=== PATIENT | female | born 1950 | race Caucasian/White ===

== ENCOUNTER 2021-10-11 07:36 | Observation (INO) ==
[~2021-10-11 07:36] MED LIST: Buffered Lidocaine 1% SYRIN 1 ml INTRADERM ONE; DiMENhydriNATE IV 50 mg/ml 1 ml VIAL IV PUSH ONE; HYDROcodone/ACETAMIN 5/325 mg TAB PO PRN; Lactated Ringers 1000 ml BAG 1,000 ML IV SCH; Metoclopramide 5 MG/ML VIAL (10 mg) IV PRN; Naloxone 0.4 mg VIAL 0.4 mg/ml 1 ml VIAL IV PRN; Ondansetron 4 mg VIAL 2 MG/ML 2 ml VIAL IV PRN; fentaNYL 100 mcg/2 ml 50 MCG/ML VIAL IV PRN
[2021-10-11] MEDS ORDERED: ceFAZolin 2 GM PREMIX 2 GM/50 ML BAG ONE (08:09)
[2021-10-11] MEDS ORDERED: Ondansetron ODT 4 mg TAB 4 MG TAB ONE (08:09)
[2021-10-11] MEDS ORDERED: Dexamethasone IV 4 MG/ML VIAL 1 ml VIAL ONE (09:30)
[2021-10-11] MEDS ORDERED: Rocuronium 50 mg VIAL 10 mg/ml 5 ml VIAL (50 mg) ONE ×2 (09:30→12:38)
[2021-10-11] MEDS ORDERED: Midazolam 2 mg/2 ml VIAL 1 mg/ml 2 ml VIAL (2 mg) ONE (09:30)
[2021-10-11] MEDS ORDERED: Lidocaine 2% PF 5 ML VIAL ONE (09:30)
[2021-10-11] MEDS ORDERED: Ondansetron 4 mg VIAL 2 MG/ML 2 ml VIAL ONE ×2 (09:30→19:03)
[2021-10-11] MEDS ORDERED: fentaNYL 100 mcg/2 ml 50 MCG/ML VIAL ONE (09:30)
[2021-10-11] MEDS ORDERED: Propofol 10 MG/ML 20 ML BTL ONE (09:30)
[2021-10-11] MEDS ORDERED: Lidocaine 1% w EPI 1:200,000 SDV 30 ML VIAL ONE (09:50)
[2021-10-11] MEDS ORDERED: Heparin 5000 UNITS/ML 1 mL VIAL ONE ×2 (09:51→09:54)
[2021-10-11] MEDS ORDERED: Bupivacaine 0.5% SDV PF 30ML VIAL ONE (09:51)
[2021-10-11] MEDS ORDERED: Chlorhexidine MOUTHWASH 0.12% 15 ML UDC ONE (09:51)
[2021-10-11] MEDS ORDERED: EPHEDrine (Pressors) 50 MG/ML VIAL ONE (11:04)
[2021-10-11] MEDS ORDERED: Glycopyrrolate IV 0.2 MG/ML 1 ML VIAL ONE ×3 (12:38→16:25)
[2021-10-11] MEDS ORDERED: Phenylephrine IV 10 MG/ML 1 ml VIAL ONE (12:38)
[2021-10-11] MEDS ORDERED: Meperidine 50 mg/ml SYRINGE 1 ml ONE (12:40)
[2021-10-11] MEDS ORDERED: ceFAZolin VIAL VIAL ONE ×2 (14:29)
[2021-10-11] MEDS ORDERED: Morphine 10 MG/ML VIAL (1 ml) ONE (15:30)
[2021-10-11] MEDS ORDERED: Metoclopramide 5 MG/ML VIAL (10 mg) ONE (19:02)
[2021-10-11] MEDS ORDERED: oxyCODONE/Acetamin 5/325 mg TAB PO PRN (21:12)
[2021-10-12] MEDS ORDERED: Ondansetron 4 mg VIAL 2 MG/ML 2 ml VIAL IV PRN (04:31)
[2021-10-12 15:08] VITALS: BP 94/53
== END 2021-10-12 16:05 | disposition home or self-care (01) ==
LOC: SSU 07:36 → OR 07:36
PROVIDERS: ADMIT Obstetrics & Gynecology; ATTEND Obstetrics & Gynecology